=== PATIENT | female | born 1960 | race Caucasian/White ===

== ENCOUNTER 2020-04-15 16:10 | Inpatient (IN) | payer BC, OTHER ==
[~2020-04-15] VITALS: Ht 154.9 cm; Wt 61.2 kg
[2020-04-15] MEDS ORDERED: LORA-258 PO (17:09)
[2020-04-15] MEDS ORDERED: QUET25TA PO (17:09)
--- NOTE | 2020-04-15 17:27 | NUR ---
1 to 1 security at the bedside.
[2020-04-15 17:52] LABS: BASOPHILS % (AUTO) 0.9 % (0.0-2.0); EOSINOPHILS % (AUTO) 0.7 % (0.0-7.0); HEMATOCRIT 38.7 % (31.2-41.9); HEMOGLOBIN 13.2 g/dL (10.9-14.3); LYMPHOCYTES # (AUTO) 1.2 K/uL (20.0-40.0); LYMPHOCYTES % (AUTO) 24.6 % (20.5-51.5); MEAN CORPUSCULAR HEMOGLOBIN 33.1 uug (24.7-32.8); MEAN CORPUSCULAR HGB CONC 34 g/dL (32.3-35.6); MEAN CORPUSCULAR VOLUME 96.9 fL (75.5-95.3); MONOCYTES # (AUTO) 0.5 K/uL (2.0-10.0); NEUTROPHILS # (AUTO) 3.2 K/uL (1.8-8.9); NEUTROPHILS % (AUTO) 63.8 % (38.5-71.5); PLATELET COUNT (AUTO) 262 K/uL (179-408); RED BLOOD CELL COUNT(AUTO) 3.99 MIL/uL (3.63-4.92)
[2020-04-15 18:04] LABS: CARBON DIOXIDE 30 mmol/L (21-32); CHLORIDE 105 mmol/L (98-107); GLUCOSE 96 mg/dL (74-106); POTASSIUM 3.9 mmol/L (3.5-5.1); UREA NITROGEN, BLOOD 14 mg/dL (7-18)
--- NOTE | 2020-04-15 18:05 | NUR ---
Pt is resting in bed, security has to leave.
[2020-04-15 18:09] LABS: ETHANOL < 3 MG/DL (0-0)
[2020-04-15 18:19] LABS: ALANINE AMINOTRANSFERASE 27 U/L (14-59); ALKALINE PHOSPHATASE 71 U/L (50-136); ASPARTATE AMINOTRANSFERASE 14 U/L (15-37); BILIRUBIN,DIRECT 0.1 mg/dL (0.0-0.2); BILIRUBIN,TOTAL 0.4 mg/dL (0.2-1.0); TOTAL PROTEIN, SERUM 7.5 g/dL (6.4-8.2)
[2020-04-15 18:20] LABS: ACETAMINOPHEN < 2.0 ug/mL (10-30)
[2020-04-15 18:42] LABS: THYROID STIMULATING HORMONE 2.881 mIU/mL (0.358-3.740)
--- NOTE | 2020-04-15 19:00 | NUR ---
Assumed care of pt from day shift nurse Suzette. Called MHU from room. Pt assigned to rm 139B.
--- NOTE | 2020-04-15 19:22 | NUR ---
Pt is medically cleared by Dr Calvin.
--- NOTE | 2020-04-15 20:30 | NUR ---
Provided meal for patient.
--- NOTE | 2020-04-15 22:20 | NUR ---
Pt. admitted to MHU room 139B, under care of Dr. Orourke and Dr Lundy. Pt is on a 5250 hold. Report given to FABRICE Bro by PACKAGING ASSEMBLERFABRICE Brooke List completed and send with patient.
--- NOTE | 2020-04-15 22:25 | NUR ---
Transfer to MHU via wheelchair with no distress noted.
[2020-04-15] MEDS ORDERED: MAGNESIUM HYDROXIDE 30 ML LIQUID UDC PO PRN (22:30)
[2020-04-15] MEDS ORDERED: ZOLPIDEM 5 MG TABLET PO PRN (22:30)
[2020-04-15] MEDS ORDERED: ACETAMINOPHEN 325 MG TABLET PO PRN (22:30)
[2020-04-15] MEDS ORDERED: LORAZEPAM 1 MG TABLET PO PRN (22:30)
[2020-04-15] MEDS ORDERED: MAG HYDROX/AL HYDROX/SIMETH 30 ML LIQUID UDC PO PRN (22:30)
[2020-04-15 22:45] VITALS: BP 146/94
[2020-04-15] MEDS ORDERED: CLONIDINE HCL 0.1 MG TABLET PO PRN (23:30)
--- NOTE | 2020-04-16 05:00 | NUR ---
Admission Note: 59 yr old female admitted to MHU from ER via wheelchair on a 5250 for Grave Disability under the care of Dr. Lundy and Rn Provider Relations Dr. Orourke. According to the Hold, Pt was placed on a 5150 by [facility] then taken to [facility] after patient was found walking on the street towards on coming traffic with no regard for safety. Patient stated she had a moment of disorientation, confusion and disorganization. Upon arrival and assessment, Pt was cooperative with the admission process, refusing to sign paperwork, stated she had been waiting in ER five hours, felt tired and wanted to sleep. Pt according to report given by ER nurse is selectively mute towards staff and refused to respond unless male staff asks her questions. Upon interview patient willing to contract for safety, denied suicidal ideation or intent, denied homicidal, ideation or intent. Exhibits bright affect with pleasant mood. Pt is Alert, oriented to name, place, time and situation. VS stable, no c/o pain on admission. Pt given Advisement and Patient Rights Handbook, as well as verbally explained. Plan of care initiated, observation Q 15 minutes for safety.
[2020-04-16 07:30] VITALS: BP 122/76
[2020-04-16] MEDS: FAMOTIDINE 20 MG TABLET PO SCH (08:16)
[2020-04-16 08:22] LABS: BILIRUBIN,TOTAL 0.5 mg/dL (0.2-1.0); POTASSIUM 4.2 mmol/L (3.5-5.1); TOTAL PROTEIN, SERUM 8.7 g/dL (6.4-8.2)
[2020-04-16 08:25] LABS: MAGNESIUM 2.7 mg/dL (1.8-2.4); PHOSPHOROUS 4.2 mg/dL (2.5-4.9); THYROID STIMULATING HORMONE 2.362 mIU/mL (0.358-3.740)
--- NOTE | 2020-04-16 10:48 | NUR ---
UR NOTE: AUTH: [id number] Approval Days: 4 - Review due on Sunday Case Manger: Jennifer P. [phone]
--- NOTE | 2020-04-16 11:09 | NUR ---
SUSI Family Contact: SW called patient's daughter Talia ([phone] or [phone]) who is involved in her care and was unable to reach at this time, left a voicemail for a return call. Patient stated her son, Teofilo Lutz ([phone]) is her DPOA however phone number is invalid.
--- NOTE | 2020-04-16 11:09 | NUR ---
SUSI Initial Discharge Plan: Patient currently resides at home [address] [place] [address] ([phone]) by herself. Patient would like to return home upon discharge. Patient's daughter Talia ([phone] or [phone]) is involved in her care. Patient stated her son, Teofilo Lutz ([phone]) is her DPOA however phone number is invalid. SUSI will continue to work with patient, family, and MD to ensure a safe and proper discharge plan.
--- NOTE | 2020-04-16 11:11 | NUR ---
Firearms Report: Supervisor Assembly Room completed and submitted a [employer] firearms report for 5250 Danger to self, danger to others and grave disability certification. A copy of report has been placed in patient chart.
[2020-04-16 15:35] LABS: BASOPHILS % (AUTO) 0.9 % (0.0-2.0); EOSINOPHILS # (AUTO) 0.1 K/uL (0.0-0.7); EOSINOPHILS % (AUTO) 1.6 % (0.0-7.0); HEMATOCRIT 39.5 % (31.2-41.9); HEMOGLOBIN 13.6 g/dL (10.9-14.3); LYMPHOCYTES # (AUTO) 1.1 K/uL (20.0-40.0); LYMPHOCYTES % (AUTO) 22.8 % (20.5-51.5); MEAN CORPUSCULAR HEMOGLOBIN 33.6 uug (24.7-32.8); MEAN CORPUSCULAR HGB CONC 34 g/dL (32.3-35.6); MEAN CORPUSCULAR VOLUME 97.8 fL (75.5-95.3); MONOCYTES # (AUTO) 0.6 K/uL (2.0-10.0); MONOCYTES % (AUTO) 12.3 % (0.0-11.0); NEUTROPHILS # (AUTO) 3.1 K/uL (1.8-8.9); NEUTROPHILS % (AUTO) 62.4 % (38.5-71.5); PLATELET COUNT (AUTO) 279 K/uL (179-408); RED BLOOD CELL COUNT(AUTO) 4.04 MIL/uL (3.63-4.92)
[2020-04-16 16:00] VITALS: BP 95/66
[2020-04-16] MEDS ORDERED: INFLUENZA VACCINE 2020-2021 0.5 ML DISP.SYRIN IM ONE (16:00)
[2020-04-16] MEDS: LITHIUM CARBONATE 300 MG CAPSULE PO SCH (16:18)
[2020-04-16 19:51] VITALS: BP 94/62
[2020-04-16] MEDS: QUETIAPINE FUMARATE 25 MG TABLET PO SCH (20:05)
[2020-04-17 07:30] VITALS: BP 108/67
[2020-04-17] MEDS: FAMOTIDINE 20 MG TABLET PO SCH (09:24)
[2020-04-17] MEDS: QUETIAPINE FUMARATE 25 MG TABLET PO SCH ×2 (09:24→20:15)
[2020-04-17] MEDS: LITHIUM CARBONATE 300 MG CAPSULE PO SCH ×2 (09:24→17:33)
[2020-04-17 15:31] VITALS: BP 96/50
--- NOTE | 2020-04-17 16:21 | NUR ---
patient is quiet, guarded, withdrawn, and isolative to her assigned room. patient has appropriate interaction with staff. she is encouraged to participate in the unit therapeutic milieu. patient denies SI/HI, denies AH/VH, but states that she is "a hair sad". patient is able to verbalize that she was admitted here because she was found unconscious, but she does not remember what events led her to be unconscious. patient is medication adherent, no adverse reaction noted. patient is able to ambulate independently and perform self care and ADL's independently.
[2020-04-17 19:52] VITALS: BP 111/71
--- NOTE | 2020-04-18 01:58 | NUR ---
RECEIVED PATIENT IN HER ROOM. ISOLATIVE AND WITHDRAWN. MOOD LOW. MINIMAL INTERACTION. DENIES SI/HI. SHE IS MEDICATION COMPLIANT. VISUAL CHECKS MADE ON HER FOR SAFETY. WILL CONTINUE TO MONITOR.
--- NOTE | 2020-04-18 06:48 | NUR ---
SLEPT WELL FOR 9:15 HOURS.
[2020-04-18 07:30] VITALS: BP 115/64
[2020-04-18] MEDS: LITHIUM CARBONATE 300 MG CAPSULE PO SCH ×2 (08:39→16:48)
[2020-04-18] MEDS: FAMOTIDINE 20 MG TABLET PO SCH (08:39)
[2020-04-18] MEDS: QUETIAPINE FUMARATE 25 MG TABLET PO SCH ×2 (08:39→20:14)
--- NOTE | 2020-04-18 10:00 | NUR ---
PATIENT IS ALERT ORIENTED AND COMPLIANT WITH MEDICATIONS AND CARE AMBULATORY ENCOURAGED TO ATTEND AND PARTICIPATE IN ACTIVITIES AND SHE EXPRESSED UNDERSTANDING WILL CONTINUE TO PROVIDE A SAFE AND THERAPEUTIC ENVIRONMENT AT ALL TIMES.
[2020-04-18 16:00] VITALS: BP 108/69
--- NOTE | 2020-04-18 17:15 | NUR ---
PATIENT IS IN THE TV ROOM WATCHING TV AND ATE HER DINNER THERE SHE IS COMPLIANT WITH MEDICATIONS AND CARE.PATIENT ENCOURAGED TO STAY OUT OF HER ROOM AND PARTICIPATE IN ACTIVITIES MUCH POSSIBLE AND SHE EXPRESSED UNDERSTANDING.
[2020-04-18 20:08] LABS: *BILIRUBIN,URIN NEGATIVE (NEGATIVE); *BLOOD, URINE NEGATIVE (NEGATIVE); *CLARITY,URINE CLEAR (CLEAR); *COLOR,URINE YELLOW (YELLOW); *KETONES,URINE NEGATIVE (NEGATIVE); *UROBILINOGEN,URINE 0.2 E.U./dl (NORMAL); LEUKOCYTE ESTERASE ,URINE NEGATIVE (NEGATIVE); NITRITE, URINE NEGATIVE (NEGATIVE); PH,URINE 6.5 (5.0-8.0); UGLUCOSE NEGATIVE (NEGATIVE)
[2020-04-18 20:15] LABS: *AMPHETAMINE, URINE NEGATIVE (NEGATIVE); *CANNABINOID, URINE NEGATIVE (NEGATIVE); *COCCAINE, URINE NEGATIVE (NEGATIVE); *PHENCYCLIDINE SCREEN,URINE NEGATIVE (NEGATIVE)
[2020-04-18 20:19] VITALS: BP 115/63
[2020-04-18 20:23] LABS: *OPIATE, URINE NEGATIVE (NEGATIVE)
--- NOTE | 2020-04-19 05:49 | NUR ---
Patient slept 9.00 last night. UA sent to lab per order. Results negative for infection. Patient is isolative and was not willing to engage in any meaningful conversation last night. No distress noted at this time.
[2020-04-19 07:30] VITALS: BP 121/61
[2020-04-19] MEDS: LITHIUM CARBONATE 300 MG CAPSULE PO SCH ×2 (08:29→16:52)
[2020-04-19] MEDS: FAMOTIDINE 20 MG TABLET PO SCH (08:29)
[2020-04-19] MEDS: QUETIAPINE FUMARATE 25 MG TABLET PO SCH ×2 (08:29→20:26)
--- NOTE | 2020-04-19 08:57 | NUR ---
patient resting quietly and calmly in her assigned bed. she is guarded and withdrawn but as appropriate interaction with staff. patient denies SI/HI, denies AH/VH, but she appears internally preoccupied. patient is adherent with medication, no adverse reaction noted. patient is able to ambulate independently and is motivated to perform self care and ADL's. patient encouraged to participate in groups and unit milieu.
--- NOTE | 2020-04-19 11:20 | NUR ---
SUSI Individual Intervention: SW met with patient and provided brief individual therapy and addressed patient's presenting problem which is socially withdrawn. SW encouraged patient to join group and interact with peers. Patient expressed her dislikes about being in a group setting and feeling "uncomfortable to share". SW educated patient on the importance of peer interaction and possibilities to learn about others and relate. Patient appeared guarded and did not want to join group at this time.
--- NOTE | 2020-04-19 11:25 | NUR ---
SUSI Family Contact: SUSI attempted to reach patient's daughter Talia at the following numbers ([phone]; [phone]; [phone]; [phone]) however all phone numbers are unsuccessful. SUSI requested nurses to document the phone number should the patient's daughter call the hospital.
--- NOTE | 2020-04-19 15:01 | NUR ---
USSI PC Hearing: Patient had probable cause hearing today and it was upheld for grave disability.
--- NOTE | 2020-04-19 15:06 | NUR ---
UR NOTE: AUTH: [id number] SW called and left clinical review via voicemail for Case Manger: Jennifer Pacheco ([phone] [id number]) regarding patient's behavior, mood, progress, and medication and labs, and discharge plan. Waiting for a call back.
[2020-04-19 15:35] VITALS: BP 103/73
--- NOTE | 2020-04-19 18:31 | NUR ---
This freelance writer spoke with patient's sister to ask for contact information for family. Uzma Nuñez (sister): [phone] Talia Harris (daughter): [phone]. Her daughter is the family member who helps make decisions for the patient per sister.
[2020-04-19 20:17] VITALS: BP 112/62
--- NOTE | 2020-04-20 06:54 | NUR ---
SLEPT FOR 8:30 HOURS.
[2020-04-20 07:49] VITALS: BP 115/69
[2020-04-20] MEDS: FAMOTIDINE 20 MG TABLET PO SCH (08:27)
[2020-04-20] MEDS: LITHIUM CARBONATE 300 MG CAPSULE PO SCH ×2 (08:27→16:32)
[2020-04-20] MEDS: QUETIAPINE FUMARATE 25 MG TABLET PO SCH ×2 (08:27→20:51)
--- NOTE | 2020-04-20 09:38 | NUR ---
UR NOTE: AUTH: [id number] SUSI received a call this morning from Sumit from [employer] who stated he is covering for Case Manger: Jennifer EasleyVíctor ([phone] [id number]) and stated that he is authorizing two additional days 04/19/20-04/20/20 and is aware of patient's discharge plan for Sunday04/21/20. This SUSI called Jennifer requesting outpatient services for the patient. Waiting for call back.
--- NOTE | 2020-04-20 10:29 | NUR ---
SUSI Family Contact: SUSI received the patient's daughter's correct phone number Talia ([phone]) from nurse Sewell. SUSI was able to contact Talia this morning and discuss treatment and discharge plan for tomorrow for the patient to return back home. Talia stated that she or a family member will cone picker the patient tomorrow and take her back home. SUSI stated to please inform of who will be able to arrange the transportation for tomorrow this afternoon. Waiting a call back.
[2020-04-20 16:49] VITALS: BP 102/61
[2020-04-20 20:10] VITALS: BP 112/56
[2020-04-21 07:30] VITALS: BP_SYST 111; BP_SYST 118; BP_DIAS 65; BP_DIAS 66
[2020-04-21] MEDS: LITHIUM CARBONATE 300 MG CAPSULE PO SCH (08:25)
[2020-04-21] MEDS: FAMOTIDINE 20 MG TABLET PO SCH (08:25)
[2020-04-21] MEDS: QUETIAPINE FUMARATE 25 MG TABLET PO SCH (08:26)
--- NOTE | 2020-04-21 08:58 | NUR ---
Discharge Note: Patient will be discharged today back home [address] [place] [address] ([phone]). Patients daughterTalia ([phone]) is made aware and is agreeable with discharge plan and will be providing transportation for the patient at 2:30-3PM. Patient is alert and oriented times 4 and is aware and agreeable with discharge plans. Patient presents with euthymic mood and congruent affect. Patient denies suicidal or homicidal ideation. Patient is referred for outpatient psychiatrist services with psychiatrist Dr. Jennifer Sigala via telehealth ([phone]) [address], [facility] [address] and has an appointment scheduled on Sunday04/28/20 at 10AM. Patient is referred to [facility] [address], [place] [address] ([phone]) for primary care physician follow ups and has an appointment scheduled on Sunday04/26/20 at 2PM with Nurse Practitioner Breonna Reyes.
--- NOTE | 2020-04-21 11:00 | NUR ---
UR NOTE: AUTH: [id number] SW left a voicemail and provided discharge summary, discharge medications and labs to Case Manger: Jennifer Pacheco ([phone] [id number]).
--- NOTE | 2020-04-21 13:40 | NUR ---
DISCHARGED NOTE: PATIENT WAS INITIALLY ADMITTIED TO [facility] FOR 5150 HOLD FOR DTS/DTO/GD REPORTEDLY STATES TAHT PATIENTS WAS FOUND WALKING THRU TRAFFIC PATIENT WAS PLACED ON EVERY 15 MINUTES SAFETY CHECK AND WAS SEEN BY PSYCHIATRIST AND MEDICAL DOCTOR . PATIENT RECEIVED PSYCHO THERAPY, MILIEU THERAPY AND PSYCHOTROPIC MEDICATIONS. SHE HAS BEEN COMPLIANT WITH MEDICATION REGIMEN AND SHOWN IMPROVEMENT IN MOOD THOUGHTS AND BEHAVIOR ON ASSESSMENT PATIENT WAS RECEIVED IN HER ROOM ORIENTED X4, NO SIGN OF DISTRESS, PATIENT PRESENTED APPROPRIATE , WELL GROOMED AND PLEASANT TO TALK TO. PATIENT HAD A CALMMOOD, SOFT SPEECH AND MAINTAINED EYE CONTACT . PATIENT WAS CALM COOPERATIVE AND RESPONDED APPROPRIATELY TO QUESTION, PATIENT DENIES SI AND HI, AH AND VH , EXPRESSED FEELINGS WITH SOME OPTIMISM AND HOPE , THE PSYCHIATRIST WAS MADE AWARE OF THE PATIENT CONDITION AND GAVE DISCHARGED INSTRUCTIONS. PATIENTS BELONGING AND VALUABLES WERE RETURNED , PATIENT SIGNED AND ACKNOWLEDGE RECEIPT. GAVE HOME MEDICATION PRESCRIPTIONS AND DISCHARGED INSTRUCTION, PATIENT WAS WALKED OUT OF THE UNITIN STABLE CONDITION AT 1:30PM AND WAS PICKED UP BY HER DAUGHTER
== END 2020-04-21 13:30 | disposition home or self-care (01) | DRG 885 ==
LOC: ER 16:10 → GPS 22:16
PROVIDERS: ADMIT Psychiatry & Neurology Psychiatry; ATTEND Registered Nurse
DX: F31.64 Bipolar disorder, current episode mixed, severe, with psychotic features (principal); E78.5 Hyperlipidemia, unspecified; F41.9 Anxiety disorder, unspecified
CPT/HCPCS: 36415; 70030-TC; 71045; 82652; 83735; 84100; 84443; 85025; 85730; 87086; 90686; 93005; A4663; G0480